=== PATIENT | female | born 1980 | race Asian ===

== ENCOUNTER 2018-07-21 18:37 | Emergency (ER) | payer OTHER ==
[~2018-07-21] VITALS: Ht 165.1 cm; Wt 63.6 kg
[2018-07-21] MEDS ORDERED: LEVO100 PO (18:49)
[2018-07-21] MEDS ORDERED: FLUCONAZOLE 150 MG TABLET PO ONE (20:15)
[2018-07-21 21:02] LABS: APPEARANCE,URINE CLEAR (CLEAR); BILIRUBIN,URINE NEGATIVE (NEGATIVE); GLUCOSE, URINE (UA) NEGATIVE (NEGATIVE); KETONES,URINE NEGATIVE (NEGATIVE); LEUKOCYTE ESTERASE ,URINE SMALL (NEGATIVE); NITRATE,URINE NEGATIVE (NEGATIVE); OCCULT BLOOD,URINE NEGATIVE (NEGATIVE); PROTEIN,URINE NEGATIVE (NEGATIVE)
[2018-07-21 21:19] LABS: RBC,URINE None Seen /HPF (0-2)
[2018-07-21 21:20] LABS: BACTERIA,URINE Rare /HPF (None Seen); SQUAMOUS EPITHELIAL CELL,UR Moderate /LPF (None Seen)
[2018-07-21 22:18] VITALS: BP 111/70
== END 2018-07-21 22:19 | disposition home or self-care (01) ==
LOC: EMS 18:38
DX: B37.3 Candidiasis of vulva and vagina (principal); E03.9 Hypothyroidism, unspecified; Z79.899 Other long term (current) drug therapy
CPT/HCPCS: 87210; 87491; 87591; 99284

== ENCOUNTER 2018-09-17 20:15 | Emergency (ER) | payer OTHER ==
[~2018-09-17] VITALS: Ht 162.6 cm; Wt 66.8 kg
[~2018-09-17 20:15] MED LIST: LEVO100 PO
[2018-09-17 21:07] VITALS: BP 122/65
[2018-09-17] MEDS ORDERED: KETOROLAC TROMETHAMINE 10 MG TABLET PO ONE (21:30)
== END 2018-09-17 22:03 | disposition home or self-care (01) ==
LOC: EMS 20:16
DX: S46.001A Unspecified injury of muscle(s) and tendon(s) of the rotator cuff of right shoulder, initial encounter (principal); E03.9 Hypothyroidism, unspecified; W18.30XA Fall on same level, unspecified, initial encounter; Y93.89 Activity, other specified; Y92.89 Other specified places as the place of occurrence of the external cause; Y99.8 Other external cause status